=== PATIENT | female | born 1975 | race Two or more races ===

== ENCOUNTER 2022-11-04 14:48 | Outpatient (CLI) | payer OTHER | END 2022-11-04 23:59 | disposition home or self-care (01) | LOC: LAB 14:48 | PROVIDERS: ATTEND Specialist | DX: Z01.812 Encounter for preprocedural laboratory examination (principal); Z20.822 Contact with and (suspected) exposure to COVID-19 | CPT/HCPCS: U0003; C9803 ==

== ENCOUNTER 2022-11-09 06:56 | Day surgery (SDC) | payer OTHER ==
[~2022-11-09 06:56] MED LIST: BUPIVACAINE 0.25% 75 MG/30 ML VIAL ONE; BUPIVACAINE 0.5 % PF 150 MG/30 ML VIAL ONE; EPINEPHRINE (1:1000) 1 MG/ML AMPUL ONE
[2022-11-09] MEDS ORDERED: MIDAZOLAM HCL 2 MG/2ML VIAL ONE (08:29)
[2022-11-09] MEDS ORDERED: HYDROMORPHONE INJ 2 MG/ML DISP.SYRIN ONE (08:29)
[2022-11-09] MEDS ORDERED: ROCURONIUM BROMIDE 50 MG/5 ML ONE (08:29)
[2022-11-09] MEDS ORDERED: BUPIVACAINE 0.5 % PF 150 MG/30 ML VIAL ONE (08:33)
[2022-11-09] MEDS ORDERED: methylPREDNISolone ACETATE 80 MG/ML VIAL ONE (09:25)
[2022-11-09] MEDS ORDERED: ANESTHESIA TRAY IN PYXIS 1 EA TRAY MC ONE (11:11)
[2022-11-09] MEDS ORDERED: ONDANSETRON HCL/PF 4 MG/2 ML VIAL ONE (11:25)
== END 2022-11-09 12:00 | disposition home or self-care (01) ==
LOC: DS 06:56
PROVIDERS: ATTEND Specialist
DX: M65.811 Other synovitis and tenosynovitis, right shoulder (principal); Z98.890 Other specified postprocedural states; Z79.899 Other long term (current) drug therapy
CPT/HCPCS: 29823; 84703; 29826; J3490 ×2; J1040; J0171; J1170; J2405; J2250; A4217; A4565; J0690; J1100; J1885; J2704; J7030